=== PATIENT | female | born 1995 | race Caucasian/White ===

== ENCOUNTER 2017-04-02 07:55 | Emergency (ER) | payer BC, OTHER ==
[2017-04-02] MEDS ORDERED: Sodium Chloride 0.9% 10 ML Syringe FLUSH PRN (08:09)
[2017-04-02] MEDS ORDERED: Sodium Chloride 0.9% 1,000 ML IV ONE (08:09)
[2017-04-02] MEDS ORDERED: Sodium Chloride 0.9% 2.5 ML Syringe FLUSH PRN (08:09)
--- NOTE | 2017-04-02 08:12 | EDM.PDOC ---
ED HPI GENERAL MEDICAL PROBLEM - General Chief Complaint: Cardiovascular Problem Stated Complaint: RACING HEART Time Seen by Provider: 04/02/17 08:01 - History of Present Illness INITIAL COMMENTS - FREE TEXT/NARRATIVE: HISTORY AND PHYSICAL: History of present illness: The patient is a 21-year-old female who presents with 3 episodes of feeling like she is having a racing heart and shortness of breath. 2 prior episodes occurred 2 days ago and yesterday which were very brief and only lasted a few minutes and involved or shortness of breath and then palpitations but no lightheadedness dizziness nausea or vomiting. The third episode occurred this morning and because it lasted longer she came for evaluation. She said initially she felt it when she was doing sprints and volleyball camp and it seemed to persist. She has not had this with activity and in the past as his occurred at rest. Currently in the ED she feels like her heart is still racing but she doesn't feel short of breath she has no abdominal complaints was not lightheaded or dizzy and did not pass out or blackout. She's been trying to hydrate with her activities and she's been eating meals. She has no complaints of any discomfort with these episodes such as chest pain or abdominal pain and she has no urinary complaints. She's had no fevers chills nausea vomiting or diarrhea. Review of systems: As per history of present illness and below otherwise all systems reviewed and negative. Past medical history: As per history of present illness and as reviewed below otherwise noncontributory. Surgical history: As per history of present illness and as reviewed below otherwise noncontributory. Social history: No reported history of drug or alcohol abuse. Family history: As per history of present illness and as reviewed below otherwise noncontributory. Physical exam: Gen.: Well-developed well-nourished female who is nontoxic and speaking clearly and easily. Vital signs of the note by me HEENT: Atraumatic, normocephalic, pupils reactive, negative for conjunctival pallor or scleral icterus, mucous membranes moist, throat clear, neck supple, nontender, trachea midline. Lungs: Clear to auscultation, breath sounds equal bilaterally, chest nontender. Heart: S1S2, regular rate and rhythm on my evaluation, negative for clicks, rubs , or JVD. Abdomen: Soft, nondistended, nontender. Negative for masses or hepatosplenomegaly. Negative for costovertebral tenderness. Pelvis: Stable nontender. Genitourinary: Deferred. Rectal: Deferred. Extremities: Atraumatic, negative for cords or calf pain. Neurovascular unremarkable. Neuro: Awake, alert, oriented. Cranial nerves II through XII unremarkable. Cerebellum unremarkable. Motor and sensory unremarkable throughout. Exam nonfocal. Skin: Normal turgor no evidence of any rashes or lesions Diagnostics: EKG CBC CMP troponin TSH UA UCG UDS CPK chest x-ray Therapeutics: IV O2 monitor IV fluids Patient has not had any episodes while here in the ED. I will apply a Holter and have advised the patient on how to document. I advised that she follow-up next week with Dr. Hatch in the clinic as he will probably have results. I've advised for hydration and no excessive strenuous activity but to continue with her volleyball As they're only doing light activities. Advised on reasons to return to the ED. Impression: Episodic palpitations with dyspnea stable etiology unclear Definitive disposition and diagnosis as appropriate pending reevaluation and review of above. 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 Musculoskeletal History: Reports: None Neurological History: Reports: Migraines Psychiatric History: Reports: None Endocrine/Metabolic History: Reports: None Hematologic History: Reports: None Immunologic History: Reports: None Oncologic (Cancer) History: Reports: None Dermatologic History: Reports: None - Infectious Disease History Infectious Disease History: Reports: None - Past Surgical History Head Surgeries/Procedures: Reports: None HEENT Surgical History: Reports: None Cardiovascular Surgical History: Reports: None GI Surgical History: Reports: None Female Surgical History: Reports: None Neurological Surgical History: Reports: None Musculoskeletal Surgical History: Reports: None Oncologic Surgical History: Reports: None Social & Family History - Family History HEENT: Reports: None Cardiac: Reports: None GI: Reports: None : Reports: None OBGYN: Reports: None Musculoskeletal: Reports: None Psychiatric: Reports: None Hematologic: Reports: None Immunologic: Reports: None Dermatologic: Reports: None Oncologic: Reports: Breast - Tobacco Use Smoking Status *Q: Never Smoker Second Hand Smoke Exposure: No - Caffeine Use Caffeine Use: Reports: Soda - Alcohol Use Days Per Week of Alcohol Use: 0 - Recreational Drug Use Recreational Drug Use: No ED ROS GENERAL - Review of Systems Review Of Systems: ROS reveals no pertinent complaints other than HPI. ED EXAM, GENERAL - Physical Exam Exam: See Below (See dictation) Course - Vital Signs Last Recorded V/S: Last Vital Signs Temp 36.6 C 04/02/17 08:10 Pulse 72 04/02/17 09:12 Resp 17 04/02/17 09:12 BP 107/63 04/02/17 09:12 Pulse Ox 100 04/02/17 09:12 Orthostatic Blood Pressure [ 111/60 Standing] Orthostatic Blood Pressure [ 100/52 Sitting] Orthostatic Blood Pressure [ 97/50 Supine] - Orders/Labs/Meds Orders: Active Orders 24 hr Category Date Time Status Cardiac Monitoring [RC] . DIRECTED Care 04/02/17 08:07 Active EKG Documentation Completion [RC] STAT Care 04/02/17 08:07 Active Oxygen Therapy, ED [RC] ASDIRECTED Care 04/02/17 08:07 Active Pulse Oximetry [RC] ASDIRECTED Care 04/02/17 08:07 Active Sodium Chloride 0.9% [Saline Flush] Med 04/02/17 08:09 Active 10 ml FLUSH ASDIRECTED PRN Sodium Chloride 0.9% [Saline Flush] Med 04/02/17 08:09 Active 2.5 ml FLUSH ASDIRECTED PRN Saline Lock Insert [OM.PC] Stat Oth 04/02/17 08:07 Ordered Medication Orders Sodium Chloride (Saline Flush) 10 ml FLUSH ASDIRECTED PRN PRN Reason: Keep Vein Open Last Admin: 04/02/17 08:16 Dose: 10 ml Sodium Chloride (Saline Flush) 2.5 ml FLUSH ASDIRECTED PRN PRN Reason: Keep Vein Open Last Admin: 04/02/17 08:17 Dose: 2.5 ml Labs: Laboratory Tests 08/12/1404/02/17 04/02/17 Range/Units 08:00 08:00 08:00 WBC 10.23 (4.0-11.0) K/uL RBC 4.14 L (4.30-5.90) M/uL Hgb 12.7 (12.0-16.0) g/dL Hct 37.6 (36.0-46.0) % MCV 90.8 (80.0-98.0) fL MCH 30.7 (27.0-32.0) pg MCHC 33.8 (31.0-37.0) g/dL RDW Std Deviation 43.1 (28.0-62.0) fl RDW Coeff of Robin 13 (11.0-15.0) % Plt Count 227 (150-400) K/uL MPV 10.20 (7.40-12.00) fL Neut % (Auto) 70.9 (48.0-80.0) % Lymph % (Auto) 16.9 (16.0-40.0) % [place] % (Auto) 10.6 (0.0-15.0) % Eos % (Auto) 1.0 (0.0-7.0) % Baso % (Auto) 0.6 (0.0-1.5) % Neut # (Auto) 7.3 H (1.4-5.7) K/uL Lymph # (Auto) 1.7 (0.6-2.4) K/uL [place] # (Auto) 1.1 H (0.0-0.8) K/uL Eos # (Auto) 0.1 (0.0-0.7) K/uL Baso # (Auto) 0.1 (0.0-0.1) K/uL Nucleated RBC % 0.0 /100WBC Nucleated RBCs # 0 K/uL Sodium 141 (136-146) mmol/L Potassium 3.6 (3.5-5.1) mmol/L Chloride 108 (98-110) mmol/L Carbon Dioxide 24 (21-31) mmol/L BUN 12 (6.0-23.0) mg/dL Creatinine 0.8 (0.6-1.5) mg/dL Est Cr Clr Drug Dosing 99.76 mL/min Estimated GFR (MDRD) > 60.0 ml/min Glucose 91 (60-110) mg/dL Calcium 9.2 (8.8-10.8) mg/dL Total Bilirubin 0.6 (0.1-1.5) mg/dL AST 24 (5-40) IU/L ALT 15 (8-54) IU/L Alkaline Phosphatase 53 (40-150) Creatine Kinase 293 H (9-236) IU/L Troponin I < 0.10 (0.0-0.29) NG/ML Total Protein 7.2 (6.0-8.0) g/dL Albumin 4.6 (3.5-5.0) g/dL Globulin 2.6 (2.0-3.5) g/dL Albumin/Globulin Ratio 1.8 (1.3-2.8) TSH 3rd Generation 1.65 (0.47-5.0) uIU/mL Urine Color Urine Appearance Urine pH (5.0-8.0) Ur Specific [place] (1.001-1.035) Urine Protein (NEGATIVE) mg/dL Urine Glucose (UA) (NEGATIVE) mg/dL Urine Ketones (NEGATIVE) mg/dL Urine Occult Blood (NEGATIVE) Urine Nitrite (NEGATIVE) Urine Bilirubin (NEGATIVE) Urine Urobilinogen (<2.0) EU/dL Ur Leukocyte Esterase (NEGATIVE) Urine RBC (0-2/HPF) Urine WBC (0-5/HPF) Ur Epithelial Cells (NONE-FEW) Amorphous Sediment (NEGATIVE) Urine Bacteria (NEGATIVE) Urine Mucus (NONE-MOD) Urine HCG, Qual (NEGATIVE) Urine Opiates Screen (NEGATIVE) Ur Oxycodone Screen (NEGATIVE) Urine Methadone Screen (NEGATIVE) Ur Barbiturates Screen (NEGATIVE) Ur Phencyclidine Scrn (NEGATIVE) Ur Amphetamine Screen (NEGATIVE) U Methamphetamines Scrn (NEGATIVE) U Benzodiazepines Scrn (NEGATIVE) U Cocaine Metab Screen (NEGATIVE) U Marijuana (THC) Screen (NEGATIVE) 04/02/17 04/02/17 04/02/17 Range/Units 09:08 09:08 09:08 WBC (4.0-11.0) K/uL RBC (4.30-5.90) M/uL Hgb (12.0-16.0) g/dL Hct (36.0-46.0) % MCV (80.0-98.0) fL MCH (27.0-32.0) pg MCHC (31.0-37.0) g/dL RDW Std Deviation (28.0-62.0) fl RDW Coeff of Robin (11.0-15.0) % Plt Count (150-400) K/uL MPV (7.40-12.00) fL Neut % (Auto) (48.0-80.0) % Lymph % (Auto) (16.0-40.0) % [place] % (Auto) (0.0-15.0) % Eos % (Auto) (0.0-7.0) % Baso % (Auto) (0.0-1.5) % Neut # (Auto) (1.4-5.7) K/uL Lymph # (Auto) (0.6-2.4) K/uL [place] # (Auto) (0.0-0.8) K/uL Eos # (Auto) (0.0-0.7) K/uL Baso # (Auto) (0.0-0.1) K/uL Nucleated RBC % /100WBC Nucleated RBCs # K/uL Sodium (136-146) mmol/L Potassium (3.5-5.1) mmol/L Chloride (98-110) mmol/L Carbon Dioxide (21-31) mmol/L BUN (6.0-23.0) mg/dL Creatinine (0.6-1.5) mg/dL Est Cr Clr Drug Dosing mL/min Estimated GFR (MDRD) ml/min Glucose (60-110) mg/dL Calcium (8.8-10.8) mg/dL Total Bilirubin (0.1-1.5) mg/dL AST (5-40) IU/L ALT (8-54) IU/L Alkaline Phosphatase (40-150) Creatine Kinase (9-236) IU/L Troponin I (0.0-0.29) NG/ML Total Protein (6.0-8.0) g/dL Albumin (3.5-5.0) g/dL Globulin (2.0-3.5) g/dL Albumin/Globulin Ratio (1.3-2.8) TSH 3rd Generation (0.47-5.0) uIU/mL Urine Color YELLOW Urine Appearance CLEAR Urine pH 6.0 (5.0-8.0) Ur Specific [place] >= 1.030 (1.001-1.035) Urine Protein NEGATIVE (NEGATIVE) mg/dL Urine Glucose (UA) NEGATIVE (NEGATIVE) mg/dL Urine Ketones TRACE H (NEGATIVE) mg/dL Urine Occult Blood TRACE-INTACT (NEGATIVE) Urine Nitrite NEGATIVE (NEGATIVE) Urine Bilirubin NEGATIVE (NEGATIVE) Urine Urobilinogen 0.2 (<2.0) EU/dL Ur Leukocyte Esterase NEGATIVE (NEGATIVE) Urine RBC 0-1 (0-2/HPF) Urine WBC 0-2 (0-5/HPF) Ur Epithelial Cells OCCASIONAL (NONE-FEW) Amorphous Sediment NOT SEEN (NEGATIVE) Urine Bacteria NOT SEEN (NEGATIVE) Urine Mucus LIGHT (NONE-MOD) Urine HCG, Qual NEGATIVE (NEGATIVE) Urine Opiates Screen NEGATIVE (NEGATIVE) Ur Oxycodone Screen NEGATIVE (NEGATIVE) Urine Methadone Screen NEGATIVE (NEGATIVE) Ur Barbiturates Screen NEGATIVE (NEGATIVE) Ur Phencyclidine Scrn NEGATIVE (NEGATIVE) Ur Amphetamine Screen NEGATIVE (NEGATIVE) U Methamphetamines Scrn NEGATIVE (NEGATIVE) U Benzodiazepines Scrn NEGATIVE (NEGATIVE) U Cocaine Metab Screen NEGATIVE (NEGATIVE) U Marijuana (THC) Screen NEGATIVE (NEGATIVE) Meds: Medications Generic Name Dose Route Start Last Admin Trade Name Freq PRN Reason Stop Dose Admin Sodium Chloride 10 ml 04/02/17 08:09 04/02/17 08:16 Saline Flush FLUSH 10 ml ASDIRECTED PRN Administration Keep Vein Open Sodium Chloride 2.5 ml 04/02/17 08:09 04/02/17 08:17 Saline Flush FLUSH 2.5 ml ASDIRECTED PRN Administration Keep Vein Open Discontinued Medications Generic Name Dose Route Start Last Admin Trade Name Freq PRN Reason Stop Dose Admin Sodium Chloride 1,000 mls @ 999 mls/hr 04/02/17 08:09 04/02/17 08:27 Normal Saline IV 04/02/17 09:09 999 mls/hr STAT ONE Administration Departure - Departure Time of Disposition: 09:45 Disposition: Home, Self-Care 01 Condition: Good Clinical Impression: Palpitations Forms: ED Department Discharge Additional Instructions: The following information is given to patients seen in the emergency department who are being discharged to home. This information is to outline your options for follow-up care. We provide all patients seen in our emergency department with a follow-up referral. The need for follow-up, as well as the timing and circumstances, are variable depending upon the specifics of your emergency department visit. If you don't have a primary care physician on staff, we will provide you with a referral. We always advise you to contact your personal physician following an emergency department visit to inform them of the circumstance of the visit and for follow-up with them and/or the need for any referrals to a consulting specialist. The emergency department will also refer you to a specialist when appropriate. This referral assures that you have the opportunity for followup care with a specialist. All of these measure are taken in an effort to provide you with optimal care, which includes your followup. Under all circumstances we always encourage you to contact your private physician who remains a resource for coordinating your care. When calling for followup care, please make the office aware that this follow-up is from your recent emergency room visit. If for any reason you are refused follow-up, please contact the [facility] emergency department at and ask to speak to the emergency department charge nurse. [facility] Primary care- Internal Medicine and Family [address] [id number] Please call for follow-up with Dr. Hatch next week and follow the instructions given to you about the Holter monitor and how to return it. Push hydration and return to ER as needed and as discussed - My Orders Last 24 Hours: My Active Orders 04/02/17 08:07 Cardiac Monitoring [RC] . DIRECTED EKG Documentation Completion [RC] STAT Oxygen Therapy, ED [RC] ASDIRECTED Pulse Oximetry [RC] ASDIRECTED Saline Lock Insert [OM.PC] Stat 04/02/17 08:09 Sodium Chloride 0.9% [Saline Flush] 10 ml FLUSH ASDIRECTED PRN Sodium Chloride 0.9% [Saline Flush] 2.5 ml FLUSH ASDIRECTED PRN - Assessment/Plan Last 24 Hours: My Active Orders 04/02/17 08:07 Cardiac Monitoring [RC] . DIRECTED EKG Documentation Completion [RC] STAT Oxygen Therapy, ED [RC] ASDIRECTED Pulse Oximetry [RC] ASDIRECTED Saline Lock Insert [OM.PC] Stat 04/02/17 08:09 Sodium Chloride 0.9% [Saline Flush] 10 ml FLUSH ASDIRECTED PRN Sodium Chloride 0.9% [Saline Flush] 2.5 ml FLUSH ASDIRECTED PRN
[2017-04-02 08:43] LABS: CHLORIDE,CL 108 mmol/L (98-110); SODIUM,NA 141 mmol/L (136-146)
--- NOTE | 2017-04-02 08:52 | CR ---
EXAMINATION: Portable chest radiograph. HISTORY: Shortness of breath. FINDINGS: The trachea is midline. The cardiomediastinal silhouette is within normal limits. No pulmonary infil trates, effusions or pneumothorax. Osseous structures appear unremarkable. IMPRESSION: No acute cardiopulmonary process.
[2017-04-02 09:55] VITALS: BP 100/57
== END 2017-04-02 10:02 | disposition home or self-care (01) ==
LOC: MW.ED 07:55
DX: R06.00 Dyspnea, unspecified (principal); R00.2 Palpitations; Z88.1 Allergy status to other antibiotic agents; Z87.440 Personal history of urinary (tract) infections
CPT/HCPCS: 36415; 71010; 80053; 80305; 81001; 81025; 82550; 84443; 84484; 85025; 93005; 93225; 96360; 99285; J7040; 99284